=== PATIENT | female | born 1975 | race Caucasian/White ===

== ENCOUNTER 2017-06-22 20:21 | Emergency (ER) | payer MEDICAID ==
[2017-06-22 20:29] VITALS: RESP 16; TEMP 98.8
--- NOTE | 2017-06-22 20:51 | EDPHY ---
HPI/HX/ROS/PE/MDM Narrative: CHIEF COMPLAINT: "Needs doctor's note" HPI: This patient is a 42 year old female arriving with a friend complaining of left- sided back pain onset yesterday. She has history of possible fibromyalgia, and takes medication for this condition. She believes her symptoms today may be related to this, but this episode is more intense. Yesterday, she developed a pinched nerve sensation at the bottom of her left shoulder blade. She has increased pain with deep inspiration. 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 Upon waking this morning, her pain had increased and radiated towards the right. She has tried massage and a heating pad, which relieved her symptoms considerably, but she continues to experience discomfort. Her friend at bedside states she has been complaining of chest pains and they would like testing completed. The patient concurs that she had chest pain four days ago, and sudden onset bilateral leg pain three days ago. She continues to feel some discomfort in her legs. She denies fever, shortness of breath, nausea, vomiting, diarrhea, urinary complaints, or other associated symptoms. REVIEW OF SYSTEMS: Aside from elements discussed in the HPI, a comprehensive 10-point review of systems was reviewed and is negative. PMH: Anxiety. SOCIAL HISTORY: Works as a senior software tester at [employer]. Friend at bedside. Lives in [place]. PHYSICAL EXAM: General:Patient is alert, in no acute distress. ENT:Eyes are normal to inspection. ENT inspection normal. Neck: Normal inspection. Full range of motion. Respiratory:No respiratory distress. Breath sounds normal bilaterally. Cardiovascular: Regular rate and rhythm. Strong peripheral pulses. Normal cap refill. Abdomen:The abdomen is nontender to palpation. There are no peritoneal signs. There are normal bowel sounds. Back: Normal to inspection. No tenderness to palpation. Skin: Normal color. No rash. Warm and dry. Extremities: Normal appearance. Full range of motion. Neuro: Oriented x3. Normal motor function. Normal sensory function. (Sami Ramires) ED Course: 42 year old female presents with left-sided back pain and bilateral leg pain onset several days ago. She has history of chest pains as well, now resolved. Physical exam unremarkable. Plan for EKG, chest x-ray, labs including CBC, BMP, Troponin. Patient signed out to Dr. Batista at 9pm pending workup. (Sami Ramires) MDM: Care transferred to nm by Dr. Sami Ramires with lab work pending. An EKG obtained and was read and documented in trace view. Please see trace view for full reading and report. Sinus rhythm, no acute ischemic changes 10:00 p.m. the patient's lab work is reassuring. We discussed her results. She is currently asymptomatic and states that she is ready to go home. She declines further workup or testing. She is asking for a note for work today. ( Lobito Batista) - Data Points Imaging Results: X-ray: chest x-ray was obtained. I viewed the images myself on the PACS system. My interpretation of the images is: negative for acute disease . The radiologist interpretation is pending. (Lobito Batista) Laboratory Results: Laboratory Results 06/22/17 21:15 06/22/17 21:15 General Time Seen by Provider: 06/22/17 20:46 Initial Vital Signs: Initial Vital Signs Temperature (C) 37.1 C 06/22/17 20:27 Heart Rate 76 06/22/17 20:27 Respiratory Rate 16 06/22/17 20:27 Blood Pressure 113/78 06/22/17 20:27 O2 Sat (%) 99 06/22/17 20:27 O2 Delivery Mode Room Air Allergies/Adverse Reactions: No Known Allergies Allergy (Unverified 12/03/10 22:32) Home Medications: Medication Instructions Recorded NK [No Known Home Meds] 06/22/17 Departure - Departure Disposition: Home, Routine, Self-Care Clinical Impression: Chest pain Qualifiers: Chest pain type: unspecified Qualified Code(s): R07.9 - Chest pain, unspecified Condition: Fair Instructions: Chest Pain (ED) Referrals: Kimberli Barksdale PA [Primary Care Provider] - As per Instructions Stand Alone Forms: Work Excuse Report Scribed for: Sami Ramires Report Scribed by: Debi Allen Date of Report: 06/22/17 Time of Report: 20:55 Physician Review and Approval Statement: Portions of this note were transcribed by an ED scribe. I personally performed the history, physical exam, and medical decision making; and confirm the accuracy of the information in the transcribed note.
--- NOTE | 2017-06-22 21:22 | CPEKG ---
Heart Rate: 62 RR Interval: 968 P-R Interval: 112 QRSD Interval: 76 QT Interval: 392 QTC Interval: 398 P [place]: 54 QRS [place]: 64 T Wave [place]: 20 EKG Severity - NORMAL ECG - EKG Impression: SINUS RHYTHM Electronically Signed By: Lobito Batista 22-Jun-2017 21:30:32
[2017-06-22 21:28] LABS: % IMMATURE GRANULYOCYTES 0.1 % (0.0-1.1); ABSOLUTE IMMATURE GRANULOCYTES 0.01 10^3/uL (0.00-0.10); ADD DIFF? NO; ADD MORPH? NO; ADD SCAN? NO; ATYPICAL LYMPHOCYTE FLAG 0 (0-99); FRAGMENT RBC FLAG 0 (0-99); HEMATOCRIT 41.8 % (38.0-47.0); HEMOGLOBIN 14.7 g/dL (12.6-16.3); LEFT SHIFT FLG 0 (0-99); LIPEMIA HEMOLYSIS FLAG 90 (0-99); MEAN CELL HEMOGLOBIN 30.9 pg (27.9-34.1); MEAN CELL HEMOGLOBIN CONCENTR. 35.2 g/dL (32.4-36.7); MEAN PLATELET VOLUME 10.8 fL (8.7-11.7); PLATELET CLUMPS FLAG 0 (0-99); PLATELET COUNT 214 10^3/uL (150-400); RED BLOOD CELL COUNT 4.75 10^6/uL (4.18-5.33); RED CELL DISTRIBUTION WIDTH 12.3 % (11.5-15.2)
[2017-06-22 21:43] LABS: ANION GAP 11 mEq/L (8-16); CALCIUM 9.9 mg/dL (8.5-10.4); CARBON DIOXIDE 26 mEq/l (22-31); CHLORIDE 100 mEq/L (97-110); CREATININE 0.8 mg/dL (0.6-1.0); GLOMERULAR FILTRATION RATE > 60; GLUCOSE 106 mg/dL (70-100); POTASSIUM 3.8 mEq/L (3.5-5.2); SODIUM 137 mEq/L (134-144)
[2017-06-22 21:55] LABS: TROPONIN I < 0.012 ng/mL (0.000-0.034)
[2017-06-22 22:24] VITALS: BP 118/74; PULSE 61; O2SAT 98
== END 2017-06-22 22:43 | disposition home or self-care (01) ==
DX: R07.9 Chest pain, unspecified (principal)

== ENCOUNTER 2017-11-14 10:44 | Emergency (ER) | payer SELFPAY ==
--- NOTE | 2017-11-14 10:57 | EDPHY ---
H & P Time Seen by Provider: 11/14/17 10:53 HPI/ROS: Chief complaint. Chest pain HPI. 42-year-old female presents with 3 history of left chest discomfort. She describes as sharp with radiation to the left posterior shoulder. It is worse with breathing and movement and bending. Subjective fever and chills. No cough. No shortness of breath but just hurts to take a deep breath. No abdominal symptoms. No unusual leg pain or swelling. Started on antibiotic yesterday for UTI. No recent travel or known infectious disease exposure. No history of thromboembolic disease. ROS Constitutional. Fever and chills Eyes. no problems with vision ENT. no sore throat, no nasal drainage Cardiovascular. Sharp left anterior chest pain Respiratory. no shortness of breath, no cough Abdominal. no abdominal pain, no nausea/vomiting, no diarrhea . no problems urinating MS. no calf pain/swelling, no neck/back pain, no joint pain Skin. no rash Lymph. no swollen glands Neuro. no headache, no dizziness, no difficulty walking or with speech Past Medical/Surgical History: UTI, anxiety Social History: Single, daily smoker, no alcohol Smoking Status: Current some day smoker Physical Exam: General Appearance: Alert pleasant well-developed female mild distress vital signs are stable Eyes: Pupils equal and round no pallor or injection. ENT, Mouth: Mucous membranes are moist. Respiratory: There are no retractions, lungs are clear to auscultation. Cardiovascular: Regular rate and rhythm. Gastrointestinal: Abdomen is soft and nontender, no masses, bowel sounds normal. Neurological: Awake and alert, sensory and motor exams grossly normal. Skin: Warm and dry, no rashes. Musculoskeletal: Neck is supple nontender. Extremities symmetrical, full range of motion. Psychiatric: Patient is oriented X 3, there is no agitation. Constitutional: Initial Vital Signs Temperature (C) 36.4 C 11/14/17 10:49 Heart Rate 78 11/14/17 10:49 Respiratory Rate 16 11/14/17 10:49 Blood Pressure 115/90 H 11/14/17 10:49 O2 Sat (%) 99 11/14/17 10:49 O2 Delivery Mode Room Air Allergies/Adverse Reactions: No Known Allergies Allergy (Unverified 12/03/10 22:32) Home Medications: Medication Instructions Recorded Antibiotic For Uti 11/14/17 Medical Decision Making - Diagnostics EKG Interpretation: EKG interpreted by me shows normal sinus rhythm normal interval and axis. QRS is normal there is no significant ST elevation or depression. There is no arrhythmia. The rate is 61 Imaging Results: Imaging Impressions Chest X-Ray 11/14/17 11:46 Impression: Mild peribronchial thickening which could be related to bronchitis/ airways disease or less likely trace fluid overload. Chest/Thorax CTA 11/14/17 12:27 Impression: 1. No definite pulmonary thromboemboli. 2. No intrathoracic pathology identified. Findings were communicated by telephone with Dr. FARIBA REGALADO at 11/14/2017 14 :13 One-view chest x-ray interpreted by me is normal CT chest reviewed by me and discussed with Dr. Boyer shows no pulmonary embolus Procedures: IV normal saline, monitor Toradol IV ED Course/Re-evaluation: Re-evaluation at 12:20 p.m.. The patient and I discussed imaging, EKG, laboratory evaluation. We discussed the elevated D-dimer and recommendation for CT angiogram. She expresses understanding and agreement. Re-evaluation at 2:25 p.m.. Patient and I discussed imaging and lab results. We discussed treatment plan including criteria for return and importance of follow-up and further evaluation. She expresses understanding and agreement Differential Diagnosis: I considered pneumonia, pneumothorax, musculoskeletal, pulmonary embolus. - Data Points Laboratory Results: Laboratory Results 11/14/17 11:04 11/14/17 11:04 11/14/17 11/14/17 11/14/17 11:04 11:04 11:04 WBC RBC Hgb Hct MCV MCH MCHC RDW Plt Count MPV Neut % (Auto) Lymph % (Auto) [place] % (Auto) Eos % (Auto) Baso % (Auto) Nucleat RBC Rel Count Absolute Neuts (auto) Absolute Lymphs (auto) Absolute Monos (auto) Absolute Eos (auto) Absolute Basos (auto) Absolute Nucleated RBC Immature Gran % Immature Gran # D-Dimer 1.13 ug/mLFEU H ug/mLFEU (0.00-0.50) Sodium 140 mEq/L mEq/L (135-145) Potassium 3.8 mEq/L mEq/L (3.5-5.2) Chloride 100 mEq/L mEq/L (97-110) Carbon Dioxide 27 mEq/l mEq/l (22-31) Anion Gap 13 mEq/L mEq/L (8-16) BUN 13 mg/dL mg/dL (7-23) Creatinine 0.7 mg/dL mg/dL (0.6-1.0) Estimated GFR > 60 Glucose 89 mg/dL mg/dL (70-100) Calcium 9.8 mg/dL mg/dL (8.5-10.4) Troponin I < 0.012 ng/mL ng/mL (0.000-0.034) Beta HCG, Qual NEGATIVE 11/14/17 11:04 WBC 6.78 10^3/uL 10^3/uL (3.80-9.50) RBC 4.75 10^6/uL 10^6/uL (4.18-5.33) Hgb 14.5 g/dL g/dL (12.6-16.3) Hct 43.1 % % (38.0-47.0) MCV 90.7 fL fL (81.5-99.8) MCH 30.5 pg pg (27.9-34.1) MCHC 33.6 g/dL g/dL (32.4-36.7) RDW 12.3 % % (11.5-15.2) Plt Count 219 10^3/uL 10^3/uL (150-400) MPV 11.6 fL fL (8.7-11.7) Neut % (Auto) 66.3 % % (39.3-74.2) Lymph % (Auto) 18.3 % % (15.0-45.0) [place] % (Auto) 11.8 % % (4.5-13.0) Eos % (Auto) 2.8 % % (0.6-7.6) Baso % (Auto) 0.7 % % (0.3-1.7) Nucleat RBC Rel Count 0.0 % % (0.0-0.2) Absolute Neuts (auto) 4.49 10^3/uL 10^3/uL (1.70-6.50) Absolute Lymphs (auto) 1.24 10^3/uL 10^3/uL (1.00-3.00) Absolute Monos (auto) 0.80 10^3/uL 10^3/uL (0.30-0.80) Absolute Eos (auto) 0.19 10^3/uL 10^3/uL (0.03-0.40) Absolute Basos (auto) 0.05 10^3/uL 10^3/uL (0.02-0.10) Absolute Nucleated RBC 0.00 10^3/uL 10^3/uL (0-0.01) Immature Gran % 0.1 % % (0.0-1.1) Immature Gran # 0.01 10^3/uL 10^3/uL (0.00-0.10) D-Dimer Sodium Potassium Chloride Carbon Dioxide Anion Gap BUN Creatinine Estimated GFR Glucose Calcium Troponin I Beta HCG, Qual Medications Given: Discontinued Medications Sodium Chloride (Ns) 1,000 mls @ 0 mls/hr IV ONCE ONE; Wide Open PRN Reason: Protocol Stop: 11/14/17 11:47 Last Admin: 11/14/17 11:53 Dose: 1,000 mls Departure - Departure Disposition: Home, Routine, Self-Care Clinical Impression: Chest wall pain Condition: Good Instructions: Chest Wall Pain (ED) Additional Instructions: heat to chest wall next 2-3 days. Ibuprofen 600 mg every 6 hr. Return for worsening symptoms. Activity as tolerated. Recheck in 2-3 days if not improved Referrals: Chong Simons MD [Primary Care Provider] - 2-3 days, if not improved
--- NOTE | 2017-11-14 11:07 | CPEKG ---
Heart Rate: 61 RR Interval: 984 P-R Interval: 107 QRSD Interval: 80 QT Interval: 388 QTC Interval: 391 P [place]: 52 QRS [place]: 63 T Wave [place]: 34 EKG Severity - BORDERLINE ECG - EKG Impression: SINUS RHYTHM EKG Impression: SHORT NV INTERVAL, ACCELERATED AV CONDUCTION Electronically Signed By: Cheng Brush 14-Nov-2017 13:44:35
[2017-11-14] MEDS ORDERED: NS 1,000 ML IV ONE (11:46)
[2017-11-14 11:52] LABS: PLATELET COUNT 219 10^3/uL (150-400)
[2017-11-14] MEDS ORDERED: IOPAMIDOL (ISOVUE 370) 100 ML BTL IV ONE (12:42)
[2017-11-14] MEDS ORDERED: KETOROLAC 30 MG/1 ML SDV IVP ONE (14:37)
[2017-11-14 15:01] VITALS: BP 111/83
== END 2017-11-14 14:59 | disposition home or self-care (01) ==
DX: R07.89 Other chest pain (principal); E86.9 Volume depletion, unspecified; F17.200 Nicotine dependence, unspecified, uncomplicated
CPT/HCPCS: Q9967